=== PATIENT | male | born 1980 | race Caucasian/White ===

== ENCOUNTER 2020-09-21 11:17 | Emergency (ER) | payer OTHER ==
[~2020-09-21] VITALS: Ht 180.3 cm; Wt 79.4 kg
[2020-09-21] MEDS ORDERED: THIAMINE 100mg/ml INJ (200mg/2ml VIAL) IV ONE (11:30)
[2020-09-21] MEDS ORDERED: SODIUM CHLORIDE 0.9% 1,000 ML IV ONE ×2 (11:30)
[2020-09-21] MEDS ORDERED: chlordiazePOXIDE HCL 25 MG CAP PO ONE (11:30)
[2020-09-21 12:15] LABS: Basophils # (auto) 0.1 10 ^3/uL (0-0.2); Basophils % (auto) 0.7 % (0.0-2.0); Eosinophils # (auto) 0.3 10 ^3/uL (0-0.8); Eosinophils % (auto) 4.6 % (0.0-7.0); Hemoglobin 15.4 g/dL (13.5-17.5); Lymphocytes # (auto) 2.4 10 ^3/uL (0.4-5.4); Lymphocytes % (auto) 32.3 % (10.0-50.0); Mean Corpuscular Hemoglobin 29.8 pg (28.0-32.0); Mean Corpuscular Hgb Conc. 32.7 g/dL (32.0-36.0); Mean Corpuscular Volume 91.4 fL (80.0-100.0); Monocytes # (auto) 0.5 10 ^3/uL (0-1.3); Monocytes % (auto) 7.3 % (0.0-12.0); Neutrophils # (auto) 4.1 10 ^3/uL (1.6-8.6); Neutrophils % (auto) 55.1 % (37.0-80.0); Nucleated Red Blood Cells % 0.1 %; Platelet Count (auto) 283 10^3/uL (140-450); Red Blood Cells 5.15 10^6/uL (4.5-5.90); Red Cell Distribution Width 13.7 % (11.8-14.3); White Blood Cell 7.4 10^3/uL (4.4-10.8)
[2020-09-21 12:27] LABS: Urine Bacteria NONE SEEN /hpf (None Seen); Urine Blood Negative /uL (Negative); Urine Specific Gravity 1.006 (1.001-1.035); Urine WBC <1 /hpf (0 - 3)
[2020-09-21 13:15] LABS: Albumin 3.8 g/dL (3.4-5.0); Anion Gap 4 (5-15); Calcium 8.6 mg/dL (8.5-10.1); Carbon Dioxide 28 mmol/L (21-32); Chloride 107 mmol/L (98-107); Sodium 139 mmol/L (136-145)
[2020-09-21 13:18] LABS: Alanine Aminotransferase 29 U/L (16-61); Aspartate Aminotransferase 13 U/L (15-37); BUN/Creatinine Ratio 10.3; Blood Alcohol < 3.0 mg/dL (0-5); Blood Urea Nitrogen 9 mg/dL (7-18); GFR African American 126 mL/min; GFR Non-African American 104 mL/min; Glucose 87 mg/dL (74-106)
[2020-09-21 13:23] LABS: Alkaline Phosphatase 99 U/L (45-117); Bilirubin, Total 0.2 mg/dL (0.2-1.0); Total Protein 7.7 g/dL (6.4-8.2)
[2020-09-21 13:58] LABS: Alcohol, Urine < 3.0 mg/dL (0-10); Amphetamine Screen, Urine NEGATIVE (NEGATIVE); Barbiturate Scree,Urine NEGATIVE (NEGATIVE); Benzodiazephine Screen, Urine NEGATIVE (NEGATIVE); Cannabinoid Screen, Urine NEGATIVE (NEGATIVE); Cocaine Screen, Urine NEGATIVE (NEGATIVE); Opiate Scree,Urine NEGATIVE (NEGATIVE); Phencyclidine Screen, Urine NEGATIVE (NEGATIVE)
[2020-09-21 14:25] VITALS: BP 121/87
== END 2020-09-21 15:12 | disposition home or self-care (01) ==
LOC: ER 11:17 → EDBD 11:17 → ER 15:12
DX: R07.89 Other chest pain (principal); F10.239 Alcohol dependence with withdrawal, unspecified; Y90.8 Blood alcohol level of 240 mg/100 ml or more
CPT/HCPCS: 36415; 71045; 80053; 80307; 80320; 81001; 84484; 85025; 93005; 96361; 96374; 99285; J3411; J7030